=== PATIENT | female | born 1975 | race Caucasian/White ===

== ENCOUNTER 2023-07-14 14:43 | Observation (INO) | payer BC, SELFPAY ==
[~2023-07-14 14:43] MED LIST: Iopamidol-370 76% 500 ML MDV (1 ML CHARGE) ONE
[2023-07-14 15:00] LABS: #Basophils 0.1 thou/uL (0.0-0.2); #Eosinphils 0.2 thou/uL (0.0-0.7); #Monocytes 1.2 thou/uL (0.11-0.59); #Neutrophils 6.2 thou/uL (1.40-6.50); %Basophils 0.5 % (0.0-1.0); %Eosinophils 1.9 % (0.0-10.0); %Lymphocytes 21.6 % (21.0-51.0); %Monocytes 12.1 % (0.0-10.0); %Neutrophils 63.6 % (42.0-75.0); Hematocrit 46.2 % (36.0-47.0); Hemoglobin 15.2 g/dL (12.0-16.0); Mean Corpuscular HGB CONC 32.9 g/dL (32.0-36.0); Mean Corpuscular Hemoglobin 29.9 pg (27.0-31.0); Mean Corpuscular Volume 90.8 fl (78.0-98.0); Mean Platelet Volume 10.1 fL (7.4-10.4); Platelet Count 270 10x3/uL (130-400); RBC Distribution Width 12.8 % (11.5-14.5); Red Blood Cell (RBC) Count 5.09 mill/uL (4.20-5.40); White Blood Cell (WBC) Count 9.8 10x3/uL (4.8-10.8)
[2023-07-14 15:14] LABS: PTT 42.8 sec (22.9-36.1); Prothrombin Time 13.5 sec (12.0-14.7)
[2023-07-14 15:30] LABS: ALT (SGPT) 17 U/L (8-55); AST (SGOT) 18 U/L (5-34); Albumin 4.4 g/dL (3.5-5.0); Alkaline Phosphatase 107 U/L (40-110); Anion Gap 13 mmol/L (10-20); BUN (Urea Nitrogen) 11 mg/dL (7.0-18.7); Bilirubin, Total 0.4 mg/dL (0.2-1.2); Calc. Creatinine Clearance 0 mL/min (70-130); Calcium 9.8 mg/dL (7.8-10.44); Carbon Dioxide 20 mmol/L (22-29); Chloride 108 mmol/L (98-107); Estimated GFR 70; Globulin 3.2 g/dL (2.4-3.5); Glucose 110 mg/dL (70-105); Potassium 3.8 mmol/L (3.5-5.1); Protein, Total 7.6 g/dL (6.0-8.3); Sodium 137 mmol/L (136-145)
[2023-07-14 15:34] LABS: Troponin I Less than 0.010 ng/mL (< 0.028)
[2023-07-14] MEDS ORDERED: Aspirin Chewable 81 MG TAB ONE (16:06)
[2023-07-14] MEDS ORDERED: Ondansetron ODT 4 MG TAB PO PRN (16:27)
[2023-07-14] MEDS ORDERED: Acetaminophen 325 MG TAB PO PRN (16:27)
[2023-07-14] MEDS ORDERED: hydrALAZINE 20 MG/ML VIAL SLOW IVP PRN (16:27)
[2023-07-14] MEDS ORDERED: predniSONE 20 MG TAB ONE (16:48)
[2023-07-14 18:21] VITALS: BMI 37.4
[2023-07-14] MEDS: Famotidine 20 MG TAB PO SCH (21:05)
[2023-07-14] MEDS: valACYclovir 500 MG TAB PO SCH (21:05)
[2023-07-14] MEDS: Atorvastatin Calcium 40 MG TAB PO SCH (21:05)
[2023-07-15 05:00] LABS: Anion Gap 13 mmol/L (10-20); BUN (Urea Nitrogen) 13 mg/dL (7.0-18.7); Calc. Creatinine Clearance 145 mL/min (70-130); Calcium 9.8 mg/dL (7.8-10.44); Carbon Dioxide 23 mmol/L (22-29); Cardiac Risk 3.7 (Less than 4.5); Chloride 108 mmol/L (98-107); Cholesterol 183 mg/dl (< 200 Desired); Estimated GFR 87; Glucose 136 mg/dL (70-105); HDL Cholesterol 49 mg/dL (>60 Neg Risk); LDL Cholesterol, Calculated 120 mg/dL; Potassium 5.2 mmol/L (3.5-5.1); Sodium 139 mmol/L (136-145); Triglycerides 68 mg/dL (Less than 150)
[2023-07-15] MEDS ORDERED: Sodium Chloride 0.9% 1,000 ML IV SCH (07:45)
[2023-07-15] MEDS: predniSONE 20 MG TAB PO SCH (08:44)
[2023-07-15] MEDS: Aspirin 81 mg Enteric Coated Tablet PO SCH (08:44)
[2023-07-15] MEDS: Famotidine 20 MG TAB PO SCH ×2 (08:49→20:28)
[2023-07-15] MEDS: valACYclovir 500 MG TAB PO SCH ×3 (08:49→20:29)
[2023-07-15] MEDS: Atorvastatin Calcium 40 MG TAB PO SCH (20:28)
[2023-07-16] MEDS: valACYclovir 500 MG TAB PO SCH (08:34)
[2023-07-16] MEDS: Famotidine 20 MG TAB PO SCH (08:34)
[2023-07-16] MEDS: Aspirin 81 mg Enteric Coated Tablet PO SCH (08:34)
[2023-07-16] MEDS: predniSONE 20 MG TAB PO SCH (08:34)
[2023-07-16 12:46] VITALS: BP 140/90; TEMP 97.6
== END 2023-07-16 14:25 | disposition home or self-care (01) ==
LOC: SUATTDRO 14:43 → ERS 14:43 → 2SE 16:18
PROVIDERS: ADMIT Internal Medicine; ATTEND Family Medicine
DX: R29.90 Unspecified symptoms and signs involving the nervous system (principal); R29.810 Facial weakness; R20.0 Anesthesia of skin; Z90.89 Acquired absence of other organs; E87.5 Hyperkalemia; E78.5 Hyperlipidemia, unspecified; Z79.82 Long term (current) use of aspirin; Z79.899 Other long term (current) drug therapy; Z87.59 Personal history of other complications of pregnancy, childbirth and the puerperium; Z88.1 Allergy status to other antibiotic agents; Z88.0 Allergy status to penicillin; Z88.8 Allergy status to other drugs, medicaments and biological substances
CPT/HCPCS: 36415; 36416; 70450; 70496; 70498; 70551; 80048; 80053; 80061; 84484; 85025; 85610; 85730; 93005; 93306; 94760; G0378; J7050; J7512; Q9967